=== PATIENT | male | born 1935 | race Caucasian/White ===

== ENCOUNTER 2017-09-26 20:37 | Inpatient (IN) | payer MEDICARE, BC ==
[2017-09-26] MEDS ORDERED: IBUPROFEN 600 MG TAB PO STA (21:13)
[2017-09-26] MEDS: SODIUM CHLORIDE 0.9% 500 ML IV SCH ×3 (21:26→23:15)
--- NOTE | 2017-09-26 21:36 | ED ---
General Adult HPI - General Chief complaint: Recheck/Abnormal Lab/Rx Stated complaint: Fever Time Seen by Provider: 09/26/17 20:56 Source: patient, family, RN notes reviewed, old records reviewed Mode of arrival: ambulatory Limitations: no limitations - History of Present Illness Initial comments: This patient is a pleasant 82-year-old male with a history of liver cancer, CABG , diabetes and hypertension presents emergency Department with 3 days of body aches, and 1 day of fever. Patient reports that he recently moved to this area from [place]. [facility] [place]. Patient states that he is going to start undergoing treatments for his liver cancer in [place] and has had an MRI and computed tomography scan at this time. He states that he is also had some urinary symptoms including burning with urination for the past few days. He relates a mild cough, but mainly complains of diffuse bodyaches over the upper arms back neck and legs. - Related Data Home Medications Medication Instructions Recorded Confirmed Aspirin 81 mg PO HS 09/26/17 09/26/17 Atorvastatin [Lipitor] 10 mg PO HS 09/26/17 09/26/17 Dorzolamide HCl [Trusopt 2%] 1 drop BOTH EYES BID 09/26/17 09/26/17 Gabapentin [Neurontin] 300 mg PO DAILY 09/26/17 09/26/17 Gabapentin [Neurontin] 600 mg PO HS 09/26/17 09/26/17 Latanoprost [Xalatan 0.005%] 1 drop BOTH EYES HS 09/26/17 09/26/17 Levothyroxine Sodium [Synthroid] 50 mcg PO DAILY 09/26/17 09/26/17 Pantoprazole Sodium [Protonix] 40 mg PO DAILY 09/26/17 09/26/17 Propranolol HCl 10 mg PO BID 09/26/17 09/26/17 Timolol 0.25% Ophth Soln [Timoptic 1 drop BOTH EYES HS 09/26/17 09/26/17 0.25% Ophth Soln] Allergies Allergy/AdvReac Type Severity Reaction Status Date / Time levofloxacin [From Levaquin] Allergy Unknown Verified 09/26/17 21:03 shellfish derived [Shellfish] Allergy Unknown Verified 09/26/17 21:06 Review of Systems ROS Statement: Those systems with pertinent positive or pertinent negative responses have been documented in the HPI. ROS Other: All systems not noted in ROS Statement are negative. Past Medical History Past Medical History: Liver Disease Additional Past Medical History / Comment(s): Liver cancer, enlarged spleen, History of Any Multi-Drug Resistant Organisms: None Reported Additional Past Surgical History / Comment(s): Open heart surgery, tumor on right foot removed, Past Psychological History: No Psychological Hx Reported Smoking Status: Never smoker Past Alcohol Use History: None Reported Past Drug Use History: None Reported General Exam - General Exam Comments Initial Comments: This patient is an 82-year-old male. Alert and oriented. He does appear somewhat weak and tired. Limitations: no limitations General appearance: alert, in no apparent distress Head exam: Present: atraumatic, normocephalic, normal inspection Eye exam: Present: normal appearance, PERRL, EOMI. Absent: scleral icterus, conjunctival injection, periorbital swelling ENT exam: Present: normal exam, mucous membranes moist Neck exam: Present: normal inspection. Absent: tenderness, meningismus, lymphadenopathy Respiratory exam: Present: normal lung sounds bilaterally, other (Scar noted over patient's open-heart surgery for CABG.). Absent: respiratory distress, wheezes, rales, rhonchi, stridor Cardiovascular Exam: Present: regular rate, normal rhythm, normal heart sounds. Absent: systolic murmur, diastolic murmur, rubs, gallop, clicks GI/Abdominal exam: Present: soft, normal bowel sounds. Absent: distended, tenderness, guarding, rebound, rigid Back exam: Present: normal inspection Neurological exam: Present: alert, oriented X3, CN II-XII intact Psychiatric exam: Present: normal affect, normal mood Skin exam: Present: warm, dry, intact, normal color. Absent: rash Course Vital Signs 09/26/17 09/26/17 20:39 22:44 Temperature 101.0 F H 99.1 F Pulse Rate 86 87 Respiratory 16 20 Rate Blood Pressure 138/63 122/60 O2 Sat by Pulse 99 100 Oximetry Medical Decision Making - Medical Decision Making This patient is a very pleasant 82-year-old male presents per his from a fear 101 she complained of diffuse body aches, a few days of burning with urination. Patient also history of liver cancer he starting to undergo treatment at the [facility] in [place]. He does not have a primary care physician here at this time. Patient states his main complaints are the body aches and backaches. Patient is given IV fluids and sepsis protocol utilized. Blood cultures obtained. Patient's labwork was reviewed and is relatively unremarkable except for a urinalysis. Multiple white blood cells are noted. We did do urine culture. Patient is ALLERGIC to Levaquin. I started him on Rocephin to cover for pyelonephritis with a fever and urinary tract infection. Discussed this case with Dr. Lira who accepts the admission. Patient agrees to admission at this time. - Lab Data Result diagrams: 09/26/17 21:37 09/26/17 21:37 Lab Results 09/26/17 09/26/17 09/26/17 Range/Units 21:37 21:37 21:37 WBC 10.5 (3.8-10.6) k/uL RBC 4.14 L (4.30-5.90) m/uL Hgb 12.0 L (13.0-17.5) gm/dL Hct 36.8 L (39.0-53.0) % MCV 88.9 (80.0-100.0) fL MCH 29.0 (25.0-35.0) pg MCHC 32.6 (31.0-37.0) g/dL RDW 14.5 (11.5-15.5) % Plt Count 61 L (150-450) k/uL Neutrophils % 79 % Lymphocytes % 12 % Monocytes % 7 % Eosinophils % 0 % Basophils % 0 % Neutrophils # 8.3 H (1.3-7.7) k/uL Lymphocytes # 1.2 (1.0-4.8) k/uL Monocytes # 0.8 (0-1.0) k/uL Eosinophils # 0.0 (0-0.7) k/uL Basophils # 0.0 (0-0.2) k/uL Polychromasia Present PT (9.0-12.0) sec INR (<1.2) APTT (22.0-30.0) sec Sodium 136 L (137-145) mmol/L Potassium 4.1 (3.5-5.1) mmol/L Chloride 103 (98-107) mmol/L Carbon Dioxide 23 (22-30) mmol/L Anion Gap 10 mmol/L BUN 17 (9-20) mg/dL Creatinine 1.00 (0.66-1.25) mg/dL Est GFR (CKD-EPI)AfAm 81 (>60 ml/min/1.73 sqM) Est GFR (CKD-EPI)NonAf 70 (>60 ml/min/1.73 sqM) Glucose 120 H (74-99) mg/dL Plasma Lactic Acid Rickey (0.7-2.0) mmol/L Calcium 9.1 (8.4-10.2) mg/dL Total Bilirubin 1.1 (0.2-1.3) mg/dL AST 44 (17-59) U/L ALT 36 (21-72) U/L Alkaline Phosphatase 160 H (38-126) U/L Total Creatine Kinase 99 (55-170) U/L CK-MB (CK-2) 0.9 (0.0-2.4) ng/mL CK-MB (CK-2) Rel Index 0.9 Troponin I <0.012 (0.000-0.034) ng/mL Total Protein 7.1 (6.3-8.2) g/dL Albumin 3.8 (3.5-5.0) g/dL Urine Color Urine Appearance (Clear) Urine pH (5.0-8.0) Ur Specific [place] (1.001-1.035) Urine Protein (Negative) Urine Glucose (UA) (Negative) Urine Ketones (Negative) Urine Blood (Negative) Urine Nitrite (Negative) Urine Bilirubin (Negative) Urine Urobilinogen (<2.0) mg/dL Ur Leukocyte Esterase (Negative) Urine RBC (0-5) /hpf Urine WBC (0-5) /hpf Urine Mucus (None) /hpf Influenza Type A RNA (Not Detectd) Influenza Type B (PCR) (Not Detectd) 09/26/17 09/26/17 09/26/17 Range/Units 21:37 21:37 21:37 WBC (3.8-10.6) k/uL RBC (4.30-5.90) m/uL Hgb (13.0-17.5) gm/dL Hct (39.0-53.0) % MCV (80.0-100.0) fL MCH (25.0-35.0) pg MCHC (31.0-37.0) g/dL RDW (11.5-15.5) % Plt Count (150-450) k/uL Neutrophils % % Lymphocytes % % Monocytes % % Eosinophils % % Basophils % % Neutrophils # (1.3-7.7) k/uL Lymphocytes # (1.0-4.8) k/uL Monocytes # (0-1.0) k/uL Eosinophils # (0-0.7) k/uL Basophils # (0-0.2) k/uL Polychromasia PT 11.0 (9.0-12.0) sec INR 1.1 (<1.2) APTT 25.0 (22.0-30.0) sec Sodium (137-145) mmol/L Potassium (3.5-5.1) mmol/L Chloride (98-107) mmol/L Carbon Dioxide (22-30) mmol/L Anion Gap mmol/L BUN (9-20) mg/dL Creatinine (0.66-1.25) mg/dL Est GFR (CKD-EPI)AfAm (>60 ml/min/1.73 sqM) Est GFR (CKD-EPI)NonAf (>60 ml/min/1.73 sqM) Glucose (74-99) mg/dL Plasma Lactic Acid Rickey 1.4 (0.7-2.0) mmol/L Calcium (8.4-10.2) mg/dL Total Bilirubin (0.2-1.3) mg/dL AST (17-59) U/L ALT (21-72) U/L Alkaline Phosphatase (38-126) U/L Total Creatine Kinase (55-170) U/L CK-MB (CK-2) (0.0-2.4) ng/mL CK-MB (CK-2) Rel Index Troponin I (0.000-0.034) ng/mL Total Protein (6.3-8.2) g/dL Albumin (3.5-5.0) g/dL Urine Color Urine Appearance (Clear) Urine pH (5.0-8.0) Ur Specific [place] (1.001-1.035) Urine Protein (Negative) Urine Glucose (UA) (Negative) Urine Ketones (Negative) Urine Blood (Negative) Urine Nitrite (Negative) Urine Bilirubin (Negative) Urine Urobilinogen (<2.0) mg/dL Ur Leukocyte Esterase (Negative) Urine RBC (0-5) /hpf Urine WBC (0-5) /hpf Urine Mucus (None) /hpf Influenza Type A RNA Not Detected (Not Detectd) Influenza Type B (PCR) Not Detected (Not Detectd) 09/26/17 Range/Units 21:37 WBC (3.8-10.6) k/uL RBC (4.30-5.90) m/uL Hgb (13.0-17.5) gm/dL Hct (39.0-53.0) % MCV (80.0-100.0) fL MCH (25.0-35.0) pg MCHC (31.0-37.0) g/dL RDW (11.5-15.5) % Plt Count (150-450) k/uL Neutrophils % % Lymphocytes % % Monocytes % % Eosinophils % % Basophils % % Neutrophils # (1.3-7.7) k/uL Lymphocytes # (1.0-4.8) k/uL Monocytes # (0-1.0) k/uL Eosinophils # (0-0.7) k/uL Basophils # (0-0.2) k/uL Polychromasia PT (9.0-12.0) sec INR (<1.2) APTT (22.0-30.0) sec Sodium (137-145) mmol/L Potassium (3.5-5.1) mmol/L Chloride (98-107) mmol/L Carbon Dioxide (22-30) mmol/L Anion Gap mmol/L BUN (9-20) mg/dL Creatinine (0.66-1.25) mg/dL Est GFR (CKD-EPI)AfAm (>60 ml/min/1.73 sqM) Est GFR (CKD-EPI)NonAf (>60 ml/min/1.73 sqM) Glucose (74-99) mg/dL Plasma Lactic Acid Rickey (0.7-2.0) mmol/L Calcium (8.4-10.2) mg/dL Total Bilirubin (0.2-1.3) mg/dL AST (17-59) U/L ALT (21-72) U/L Alkaline Phosphatase (38-126) U/L Total Creatine Kinase (55-170) U/L CK-MB (CK-2) (0.0-2.4) ng/mL CK-MB (CK-2) Rel Index Troponin I (0.000-0.034) ng/mL Total Protein (6.3-8.2) g/dL Albumin (3.5-5.0) g/dL Urine Color Yellow Urine Appearance Cloudy (Clear) Urine pH 5.5 (5.0-8.0) Ur Specific [place] 1.023 (1.001-1.035) Urine Protein 1+ H (Negative) Urine Glucose (UA) Negative (Negative) Urine Ketones Negative (Negative) Urine Blood Small H (Negative) Urine Nitrite Negative (Negative) Urine Bilirubin Negative (Negative) Urine Urobilinogen <2.0 (<2.0) mg/dL Ur Leukocyte Esterase Moderate H (Negative) Urine RBC 7 H (0-5) /hpf Urine WBC 63 H (0-5) /hpf Urine Mucus Many H (None) /hpf Influenza Type A RNA (Not Detectd) Influenza Type B (PCR) (Not Detectd) 09/26/17 21:36 EKG shows marked sinus rhythm, right bundle martinez block. Ventricular rate of 95 beats were minute. NC interval is 180 ms. QRS duration 120 ms. QT QTc is 400/502 ms. No evidence of ST elevation or T-wave inversion. No evidence of atrial or ventricular arrhythmias. - Radiology Data Radiology results: report reviewed His x-rays negative for any acute cardiopulmonary disease. Disposition Clinical Impression: Pyelonephritis Disposition: ADMITTED IP TO THIS HOSP Condition: Stable Referrals: Nonstaff,Physician [Primary Care Provider] - 1-2 days Time of Disposition: 23:11
[2017-09-26 21:53] LABS: Basophils % (A) 0 %; Eosinophils % (A) 0 %; HCT 36.8 % (39.0-53.0); Lymphocytes # (A) 1.2 k/uL (1.0-4.8); Lymphocytes % (A) 12 %; MCHC 32.6 g/dL (31.0-37.0); MCV 88.9 fL (80.0-100.0); Mean Platelet Volume 9.5; Monocytes # (A) 0.8 k/uL (0-1.0); Monocytes % (A) 7 %; Neutrophils # (A) 8.3 k/uL (1.3-7.7); Neutrophils % (A) 79 %; RBC 4.14 m/uL (4.30-5.90); RDW 14.5 % (11.5-15.5); WBC 10.5 k/uL (3.8-10.6)
[2017-09-26 22:00] LABS: Appearance,Urine Cloudy (Clear); Bilirubin,Urine Negative (Negative); Blood,Urine Small (Negative); Color,Urine Yellow; Glucose,Urine (UA) Negative (Negative); Ketones,Urine Negative (Negative); Leukocyte Esterase,Urine Moderate (Negative); Mucus,Urine Many /hpf; Nitrite,Urine Negative (Negative); PH, Urine 5.5 (5.0-8.0); Protein,Urine 1+ (Negative); RBC,Urine 7 /hpf (0-5); Specific Gravity,Urine 1.023 (1.001-1.035); Urobilinogen,Urine <2.0 mg/dL (<2.0); WBC,Urine 63 /hpf (0-5)
[2017-09-26 22:01] LABS: INR 1.1 (<1.2)
[2017-09-26 22:02] LABS: Polychromasia Present
[2017-09-26 22:03] LABS: Albumin 3.8 g/dL (3.5-5.0); Calcium 9.1 mg/dL (8.4-10.2); Platelet Count 61 k/uL (150-450); Potassium 4.1 mmol/L (3.5-5.1); Total Bilirubin 1.1 mg/dL (0.2-1.3); Total Protein 7.1 g/dL (6.3-8.2)
--- NOTE | 2017-09-26 22:11 | XR ---
EXAMINATION TYPE: XR chest 2V DATE OF EXAM: 09/26/2017 COMPARISON: NONE HISTORY: Fever TECHNIQUE: Frontal and lateral views of the chest are obtained. FINDINGS: There is no heart failure nor confluent pneumonic infiltrate. There are sternal wires. Hea rt size is normal. There is no evidence of pleural effusion. Bony thorax appears intact. IMPRESSION: No active cardiopulmonary disease.
[2017-09-26 22:12] LABS: Creatine Kinase 99 U/L (55-170)
[2017-09-26 22:25] LABS: Creatine Kinase MB 0.9 ng/mL (0.0-2.4); Troponin I <0.012 ng/mL (0.000-0.034)
[2017-09-26] MEDS ORDERED: cefTRIAXone IN SWFI 1,000 MG/10 ML SYRINGE IVP STA (22:55)
[2017-09-26] MEDS ORDERED: IBUPROFEN 400 MG TAB PO PRN (23:12)
[2017-09-26] MEDS ORDERED: NALOXONE 0.4 MG/ML 1 ML VIAL IV PRN (23:12)
[2017-09-26] MEDS ORDERED: Acetaminophen-Codeine 300-30mg TAB PO PRN (23:12)
[2017-09-26] MEDS ORDERED: MORPHINE SULFATE 4 MG/ML SYRINGE IV PRN (23:12)
[2017-09-26] MEDS ORDERED: TEMAZEPAM 15 MG CAP PO PRN (23:12)
[2017-09-26] MEDS ORDERED: ONDANSETRON 4 MG/2 ML VIAL IVP PRN (23:12)
[2017-09-26] MEDS ORDERED: ALPRAZolam 0.25 MG TAB PO PRN (23:12)
[2017-09-26] MEDS: SODIUM CHLORIDE 0.9% 1,000 ML IV SCH (23:40)
[2017-09-27] MEDS ORDERED: CALCIUM CARBONATE 500 MG CHEWABLE PO PRN (00:04)
[2017-09-27] MEDS ORDERED: MELATONIN 3 MG TABLET PO PRN (00:04)
[2017-09-27] MEDS ORDERED: HYDROcodone/APAP 5-325MG 1 EACH TAB PO PRN (00:04)
[2017-09-27] MEDS ORDERED: NALOXONE 0.4 MG/ML 1 ML VIAL IV PRN (00:04)
[2017-09-27] MEDS ORDERED: ACETAMINOPHEN TAB 325 MG TAB PO PRN (00:04)
[2017-09-27] MEDS ORDERED: DOCUSATE 100 MG CAP PO PRN (00:04)
--- NOTE | 2017-09-27 00:10 | P.HPIM ---
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 In the emergency department he underwent an extensive exam. On arrival he was found to be febrile at 101. His blood work showed slight anemia with hemoglobin of 12 and platelets of 61. Urinalysis demonstrated probable urinary tract infection. EKG was within normal limits. He was diagnosed with UTI given a dose of Rocephin, and started on IV fluids. Arrangements were made for admission. Patient seen and examined at bedside. He states his began 3-4 days ago but worsened today. He was having all over her body and joint aches. He was feeling overall weak and fatigued. He is having some difficulty standing from a chair. He has been having fevers for the last 2 days with a T-max of 101.4. He is also noted increased headache compared to his usual. He did notice some dysuria. Initially he thought it was a recurrence of his prior reaction to Levaquin but when the fever spiked he felt that this was something different. He has liver cancer and will be getting radiation to the liver on October 22. His last chemo was November 2016. He does not take any aspirin secondary to history of esophageal varices. Review of Systems General: + Fever/chills, no rigors, no weight loss/weight gain, + generalized fatigue/weakness Eyes: no noticeable visual changes, no loss of vision ENT: no rhinorrhea, no congestion, no sore throat Cardiovascular: no chest pain, no palpitations, no preyncope/syncope, no edema Pulmonary: no shortness of breath, no wheezing, no cough Abdominal: no abdominal pain, no constipation, no diarrhea, no vomiting, no nausea Genitourinary: + Dysuria, no urinary frequency, no unusual discharge/odor Neuro: no unusual paresthesias, no unusual paresis/paralysis, no headache Dermatologic: no unusual rashes, no unusual lesions, no unusual changes in nails Hematologic: no hemoptysis, no hematuria, no melena/hematochezia Psychiatric: no changes in mood or behaviors, no changes in sleep pattern Past Medical History Past Medical History: Liver Disease Additional Past Medical History / Comment(s): Liver cancer status post chemo, enlarged spleen, hypothyroidism, coronary artery disease, prior neck injury resulting in neuropathy, esophageal varices, glaucoma History of Any Multi-Drug Resistant Organisms: None Reported Additional Past Surgical History / Comment(s): Open heart surgery, tumor on right foot removed Past Psychological History: No Psychological Hx Reported Smoking Status: Never smoker Past Alcohol Use History: None Reported Past Drug Use History: None Reported Additional History: Lives with his , no assistive devices - Past Family History Mother Additional Family Medical History / Comment(s): Esophageal varices, hepatitis B Father Additional Family Medical History / Comment(s): Congestive heart failure Medications and Allergies Home Medications Medication Instructions Recorded Confirmed Type Aspirin 81 mg PO HS 09/26/17 09/26/17 History Atorvastatin [Lipitor] 10 mg PO HS 09/26/17 09/26/17 History Dorzolamide HCl [Trusopt 2%] 1 drop BOTH EYES BID 09/26/17 09/26/17 History Gabapentin [Neurontin] 300 mg PO DAILY 09/26/17 09/26/17 History Gabapentin [Neurontin] 600 mg PO HS 09/26/17 09/26/17 History Latanoprost [Xalatan 0.005%] 1 drop BOTH EYES HS 09/26/17 09/26/17 History Levothyroxine Sodium [Synthroid] 50 mcg PO DAILY 09/26/17 09/26/17 History Pantoprazole Sodium [Protonix] 40 mg PO DAILY 09/26/17 09/26/17 History Propranolol HCl 10 mg PO BID 09/26/17 09/26/17 History Timolol 0.25% Ophth Soln [Timoptic 1 drop BOTH EYES HS 09/26/17 09/26/17 History 0.25% Ophth Soln] Allergies Allergy/AdvReac Type Severity Reaction Status Date / Time levofloxacin [From Levaquin] Allergy Unknown Verified 09/26/17 21:03 shellfish derived [Shellfish] Allergy Unknown Verified 09/26/17 21:06 Physical Exam Osteopathic Statement: *. No significant issues noted on an osteopathic structural exam other than those noted in the History and Physical/Consult. Vitals: Vital Signs Temp Pulse Resp BP Pulse Ox 09/26/17 22:44 99.1 F 87 20 122/60 100 09/26/17 20:39 101.0 F H 86 16 138/63 99 Intake and Output 09/26/17 09/26/17 09/27/17 14:59 22:59 06:59 Other: Weight 86.183 kg General: Ill-appearing, no distress, appears at stated age, normal weight Derm: no unusual rashes/lesions no unusual ecchymoses, warm, dry Head: atraumatic, normocephalic, symmetric Eyes: EOMI, no lid lag, anicteric sclera, pupils equal round reactive to light ENT: Nose and ears atraumatic, no thrush, no pharyngeal erythema Neck: No thyromegaly, no cervical lymphadenopathy, trachea midline, supple Mouth: Hemangioma left lower lip, mucus membranes moist Cardiovascular: S1S2 reg, systolic ejection murmur, positive posterior tibial pulse bilateral, no edema, capillary refill less than 2 seconds Lungs: CTA bilateral, no rhonchi, no rales , no accessory muscle use Abdominal: soft, nontender to palpation, no guarding, no appreciable organomegaly, normal bowel sounds, no CVA tenderness Ext: no gross muscle atrophy, muscle strength 5 out of 5 in all 4 extremities grossly, no contractures, Neuro: CN II-XI grossly intact, light touch intact all 4 extremities Psych: Alert, oriented, appropriate affect Results CBC & Chem 7: 09/26/17 21:37 09/26/17 21:37 Labs: Abnormal Lab Results - Last 24 Hours (Table) 09/26/17 09/26/17 09/26/17 Range/Units 21:37 21:37 21:37 RBC 4.14 L (4.30-5.90) m/uL Hgb 12.0 L (13.0-17.5) gm/dL Hct 36.8 L (39.0-53.0) % Plt Count 61 L (150-450) k/uL Neutrophils # 8.3 H (1.3-7.7) k/uL Sodium 136 L (137-145) mmol/L Glucose 120 H (74-99) mg/dL Alkaline Phosphatase 160 H (38-126) U/L Urine Protein 1+ H (Negative) Urine Blood Small H (Negative) Ur Leukocyte Esterase Moderate H (Negative) Urine RBC 7 H (0-5) /hpf Urine WBC 63 H (0-5) /hpf Urine Mucus Many H (None) /hpf Comments: EKG revealed normal sinus rhythm at a rate of 95 with a right bundle branch block with strain, prolonged QT at 502 Thrombosis Risk Factor Assmnt - DVT/VTE Prophylaxis DVT/VTE Prophylaxis: Mechanical Prophylaxis ordered, Contraindicated - See note (thrombocytopenia) - Choose All That Apply Each Risk Factor Represents 2 Points: Malignancy Each Risk Factor Represents 3 Points: Age 75 years or older Thrombosis Risk Factor Assessment Total Risk Factor Score: 5 Thrombosis Risk Factor Assessment Level: High Risk Assessment and Plan Assessment: UTI -Rocephin -IV fluids -Await blood and urine culture Liver cancer with history of esophageal varices -Continue with PPI -Continue with outpatient follow-up -Plan is for radiation therapy on October 22. He is currently following at [facility]. Hypothyroidism -Synthroid - check TSH Clinical dehydration -IV fluids Anemia and thrombocytopenia -Suspect chronic with enlarged spleen and liver cancer -Follow CBC -Avoid pharmacologic DVT prophylaxis at this time with history of esophageal varices and platelets of 63 -Continue outpatient follow-up Chronic: Coronary artery disease Glaucoma Neuropathy Surrogate decision-maker: -Megha Quintana CODE STATUS:full DVT prophylaxis: SCDs Discussed with: Patient, family, ED PA Anticipated discharge: 24-[address]: home A total of 55 minutes was spent on the care of this complex patient more than 50 % of the time was spent in counseling and care coordination.
[2017-09-27 00:37] VITALS: BMI 28.8
[2017-09-27] MEDS: SODIUM CHLORIDE 0.9% 1,000 ML IV SCH (00:41)
[2017-09-27] MEDS: GABAPENTIN 300 MG CAP PO SCH ×3 (00:42→22:22)
[2017-09-27] MEDS: LEVOTHYROXINE 50 MCG TAB PO SCH (06:03)
[2017-09-27] MEDS: DORZOLAMIDE HCL 2% DROPS 10 ML BTL BOTH EYES SCH ×2 (07:54→22:23)
[2017-09-27] MEDS: PROPRANOLOL 10 MG TAB PO SCH ×2 (07:55→22:24)
[2017-09-27] MEDS: PANTOPRAZOLE 40 MG TABLET PO SCH (07:55)
[2017-09-27] MEDS ORDERED: PANTOPRAZOLE 40 MG/10 ML VIAL IV SCH (09:00)
[2017-09-27 09:17] LABS: HCT 36.1 % (39.0-53.0); HGB 11.4 gm/dL (13.0-17.5); MCH 28.9 pg (25.0-35.0); MCHC 31.7 g/dL (31.0-37.0); MCV 91.3 fL (80.0-100.0); Mean Platelet Volume 9.3; RBC 3.95 m/uL (4.30-5.90); RDW 14.5 % (11.5-15.5); WBC 6.8 k/uL (3.8-10.6)
[2017-09-27 09:21] LABS: Platelet Count 59 k/uL (150-450)
[2017-09-27 09:27] LABS: Anion Gap 8 mmol/L; Blood Urea Nitrogen 14 mg/dL (9-20); Calcium 8.4 mg/dL (8.4-10.2); Carbon Dioxide 26 mmol/L (22-30); Chloride 107 mmol/L (98-107); Glucose 161 mg/dL (74-99); Potassium 3.8 mmol/L (3.5-5.1); Sodium 141 mmol/L (137-145)
[2017-09-27 10:25] LABS: T4, Free (Free Thyroxine) 1.19 ng/dL (0.78-2.19)
--- NOTE | 2017-09-27 11:35 | CDI ---
Last Revision, June 2017 Documentation Clarification Form Date: September 27, 2017 From: Dyan Marlow RN Admit Date: 09/26/2017 11:15:00 PM Patient Name: Martin Quintana Visit Number: [id number] ATTENTION: The Clinical Documentation Specialists (CDI) and [facility] Coding Staff appreciate your assistance in clarifying documentation. Please respond to the clarification below the line at the bottom and electronically sign. The CDI & [facility] Coding staff will review the response and follow-up if needed. Please note: Queries are made part of the Legal Health Record. If you have any questions, please contact the author of this message via ITS. Dr. Charis Weldon, Anemia is charted in the H&P, it lacks specificity to accurately reflect your patients severity of condition and clarification is needed. History/Risk Factors: liver cancer, CAD, neuropathy from neck injury, came in with weakness and fever Clinical indicators: Hemoglobin: 12.0 -11.4 Hematocrit: 36.8-36.1 Treatment: monitor labs In order to capture the severity of condition, please clarify the type of anemia and etiology if known: Iron deficiency anemia Hemolytic anemia Anemia due to malignancy Nutritional anemia Unable to determine Other, please specify Please continue to document in your progress notes ,discharge summary or under the line below,in order to capture severity of illness and risk of mortality. Include clinical findings that support your diagnosis. Clinically unable to determine MTDD
--- NOTE | 2017-09-27 11:43 | P.PN ---
Subjective Progress Note Date: 09/27/17 Principal diagnosis: Body aches Patient was feeling better today, no recurrent body aches or fevers. He was able to ambulate around the room today. Objective - Vital Signs Vital signs: Vital Signs Temp 97.3 F L 09/27/17 07:00 Pulse 77 09/27/17 07:00 Resp 18 09/27/17 07:00 BP 104/59 09/27/17 07:00 Pulse Ox 96 09/27/17 07:00 Intake & Output 09/26/17 09/27/17 09/27/17 18:59 06:59 18:59 Intake Total 600 120 Balance 600 120 Weight 90 kg Intake: Oral 600 120 Other: # Voids 2 - Exam General: comfortable, no distress. Derm: no unusual rashes/lesions, no unusual ecchymoses, warm, dry Head: atraumatic, normocephalic, symmetric Eyes: EOMI, no lid lag, anicteric sclera, pupils equal round reactive to light ENT: Nose and ears atraumatic, no thrush, no pharyngeal erythema Neck: No thyromegaly, no cervical lymphadenopathy, trachea midline, supple Mouth: Hemangioma left lower lip, mucus membranes moist Cardiovascular: S1S2 reg, systolic ejection murmur, no edema, Lungs: CTA bilateral, no rhonchi, no rales , no accessory muscle use Abdominal: soft, nontender to palpation, no guarding, no appreciable organomegaly, normal bowel sounds, no CVA tenderness Ext: no gross muscle atrophy, muscle strength 5 out of 5 in all 4 extremities grossly, no contractures, Neuro: CN II-XI grossly intact, light touch intact all 4 extremities Psych: Alert, oriented, appropriate affect - Labs CBC & Chem 7: 09/27/17 08:47 09/27/17 08:47 Labs: Abnormal Lab Results - Last 24 Hours (Table) 09/26/17 09/26/17 09/26/17 Range/Units 21:37 21:37 21:37 RBC 4.14 L (4.30-5.90) m/uL Hgb 12.0 L (13.0-17.5) gm/dL Hct 36.8 L (39.0-53.0) % Plt Count 61 L (150-450) k/uL Neutrophils # 8.3 H (1.3-7.7) k/uL Sodium 136 L (137-145) mmol/L Glucose 120 H (74-99) mg/dL Alkaline Phosphatase 160 H (38-126) U/L TSH (0.465-4.680) mIU/L Urine Protein 1+ H (Negative) Urine Blood Small H (Negative) Ur Leukocyte Esterase Moderate H (Negative) Urine RBC 7 H (0-5) /hpf Urine WBC 63 H (0-5) /hpf Urine Mucus Many H (None) /hpf 09/27/17 09/27/17 Range/Units 08:47 08:47 RBC 3.95 L (4.30-5.90) m/uL Hgb 11.4 L (13.0-17.5) gm/dL Hct 36.1 L (39.0-53.0) % Plt Count 59 L (150-450) k/uL Neutrophils # (1.3-7.7) k/uL Sodium (137-145) mmol/L Glucose 161 H (74-99) mg/dL Alkaline Phosphatase (38-126) U/L TSH 5.180 H (0.465-4.680) mIU/L Urine Protein (Negative) Urine Blood (Negative) Ur Leukocyte Esterase (Negative) Urine RBC (0-5) /hpf Urine WBC (0-5) /hpf Urine Mucus (None) /hpf Microbiology - Last 24 Hours (Table) 09/26/17 21:37 Urine Culture - Preliminary Urine,Voided Assessment and Plan Plan: Acute UTI -Continue rocephin -IV fluids -Await blood and urine culture Liver cancer with history of esophageal varices -Continue with PPI -Continue with outpatient follow-up -Plan is for radiation therapy on October 22. He is currently following at [facility]. Hypothyroidism -Synthroid Clinical dehydration -IV fluids Anemia and thrombocytopenia -Chronic with enlarged spleen and liver cancer -Follow CBC -Avoid pharmacologic DVT prophylaxis at this time with history of esophageal varices and platelets of 63 -Continue outpatient follow-up Chronic: Coronary artery disease Glaucoma Neuropathy
[2017-09-27] MEDS ORDERED: LATANOPROST 0.005% OPHTH DROPS 2.5 ML BTL BOTH EYES SCH (21:00)
[2017-09-27] MEDS ORDERED: ATORVASTATIN 10 MG TAB PO SCH (21:00)
[2017-09-27] MEDS ORDERED: TIMOLOL 0.25% OPHTH DROPS 5 ML BTL BOTH EYES SCH (21:00)
[2017-09-27] MEDS ORDERED: ASPIRIN 81 MG PO SCH (21:00)
[2017-09-28] MEDS: PROPRANOLOL 10 MG TAB PO SCH (06:29)
[2017-09-28] MEDS: LEVOTHYROXINE 50 MCG TAB PO SCH (06:29)
[2017-09-28 07:43] VITALS: BP 93/50; PULSE 69; RESP 16; TEMP 99.2
[2017-09-28] MEDS: DORZOLAMIDE HCL 2% DROPS 10 ML BTL BOTH EYES SCH (08:56)
[2017-09-28] MEDS: PANTOPRAZOLE 40 MG TABLET PO SCH (08:57)
[2017-09-28] MEDS: GABAPENTIN 300 MG CAP PO SCH (08:57)
[2017-09-28] MEDS ORDERED: cefTRIAXone IN SWFI 1,000 MG/10 ML SYRINGE IVP STA (10:04)
--- NOTE | 2017-09-28 16:11 | P.DS ---
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 He stated this began 3-4 days ago. He was having aches all over hir body and joint aches. He was feeling overall weak and fatigued. He was also having some difficulty standing from a chair. In addition he was having fevers for the last 2 days with a T-max of 101.4. He also noted increased headaches compared to his usual. He did notice some dysuria as well. Initially he thought it was a recurrence of his prior reaction to Levaquin but when the fever spiked he felt that this was something different. In the emergency department he underwent an extensive exam. On arrival he was found to be febrile at 101. His blood work showed slight anemia with hemoglobin of 12 and platelets of 61. Urinalysis demonstrated probable urinary tract infection. EKG was within normal limits. He was diagnosed with UTI given a dose of Rocephin, and started on IV fluids. Patient was admitted for further evaluation and management. He has liver cancer and will be getting radiation to the liver on October 22. His last chemo was November 2016, he follows up at the [facility] in [place] for that. He was treated with antibiotics and IV fluids. Preliminary urine cultures grew staph coag negative. Final ID and sensitivity are still pending. His symptoms resolved and today was discharged in a stable condition. He was prescribed some Keflex upon discharge. Patient was not willing to wait for that to come back and he adamantly wanted to go home. Patient Condition at Discharge: Stable Plan - Discharge Summary New Discharge Prescriptions: New Cephalexin [Keflex] 500 mg PO Q12HR #26 cap Continue Timolol 0.25% Ophth Soln [Timoptic 0.25% Ophth Soln] 1 drop BOTH EYES HS Latanoprost [Xalatan 0.005%] 1 drop BOTH EYES HS Dorzolamide HCl [Trusopt 2%] 1 drop BOTH EYES BID Pantoprazole Sodium [Protonix] 40 mg PO DAILY Levothyroxine Sodium [Synthroid] 50 mcg PO DAILY Gabapentin [Neurontin] 300 mg PO DAILY Gabapentin [Neurontin] 600 mg PO HS Propranolol HCl 10 mg PO BID Atorvastatin [Lipitor] 10 mg PO HS Aspirin 81 mg PO HS Discharge Medication List Aspirin 81 mg PO HS 09/26/17 [History] Atorvastatin [Lipitor] 10 mg PO HS 09/26/17 [History] Dorzolamide HCl [Trusopt 2%] 1 drop BOTH EYES BID 09/26/17 [History] Gabapentin [Neurontin] 300 mg PO DAILY 09/26/17 [History] Gabapentin [Neurontin] 600 mg PO HS 09/26/17 [History] Latanoprost [Xalatan 0.005%] 1 drop BOTH EYES HS 09/26/17 [History] Levothyroxine Sodium [Synthroid] 50 mcg PO DAILY 09/26/17 [History] Pantoprazole Sodium [Protonix] 40 mg PO DAILY 09/26/17 [History] Propranolol HCl 10 mg PO BID 09/26/17 [History] Timolol 0.25% Ophth Soln [Timoptic 0.25% Ophth Soln] 1 drop BOTH EYES HS [History] Cephalexin [Keflex] 500 mg PO Q12HR #26 cap 09/28/17 [Rx] Follow up Appointment(s)/Referral(s): Nonstaff,Physician [Primary Care Provider] - 1-2 days Patient Instructions/Handouts: Urinary Tract Infection in Men (DC) Discharge Disposition: HOME SELF-CARE
== END 2017-09-28 11:00 | disposition home or self-care (01) | DRG 690 ==
LOC: EC 20:37 → 4MS4W 23:15
PROVIDERS: ADMIT Internal Medicine; ATTEND Internal Medicine
DX: N39.0 Urinary tract infection, site not specified (principal); D69.6 Thrombocytopenia, unspecified; G62.9 Polyneuropathy, unspecified; C22.9 Malignant neoplasm of liver, not specified as primary or secondary; E86.0 Dehydration; R16.1 Splenomegaly, not elsewhere classified; D64.9 Anemia, unspecified; E03.9 Hypothyroidism, unspecified; E11.9 Type 2 diabetes mellitus without complications; T14.90XS Injury, unspecified, sequela; H40.9 Unspecified glaucoma; I10 Essential (primary) hypertension; I25.10 Atherosclerotic heart disease of native coronary artery without angina pectoris; Z79.82 Long term (current) use of aspirin; Z82.49 Family history of ischemic heart disease and other diseases of the circulatory system; Z88.1 Allergy status to other antibiotic agents; Z92.21 Personal history of antineoplastic chemotherapy; Z95.1 Presence of aortocoronary bypass graft; Z91.013 Allergy to seafood
CPT/HCPCS: 36415; 71046; 80048; 80053; 81001; 82550; 82553; 83605; 84439; 84443; 84484; 85025; 85027; 85610; 85730; 87040; 87077; 87086; 87186; 87502; 93005; 96374; 99285

== ENCOUNTER 2019-10-18 17:23 | Inpatient (IN) | payer OTHER, MEDICARE, BC ==
--- NOTE | 2019-10-18 17:45 | ED ---
General Adult HPI - General Chief complaint: Altered Mental Status Stated complaint: AMS Time Seen by Provider: 10/18/19 17:24 Source: patient, EMS Mode of arrival: EMS Limitations: altered mental status - History of Present Illness Initial comments: Dictation was produced using N-Sided dictation software. please excuse any grammatical, word or spelling errors. This patient was cared for during a federal and state declared state of emergency secondary to Covid 19 Chief Complaint: 84-year-old male with past medical history of liver cancer on oral chemotherapy presents with generalized weakness and altered mental status. History of Present Illness: Patient is 84-year-old male is brought in by EMS. Patient is accompanied by . According to patient has been altered for the last 4-5 days. She noticed that initially his symptoms began with weakness. He sees a doctor out of [facility] who prescribes patient's oral chemotherapy pills. Discussion was had with that physician and be rechecked did come to the emergency department. was told that there is concern of possible infection causing patient's symptoms. Patient is a poor historian at this time. Patient unable to provide detailed HPI. Complains of some mild back pain however he does have chronic back pain according to . noted that patient was significantly weaker today than when his symptoms began 4-5 days ago prompting ER visitation. The ROS documented in this emergency department record has been reviewed and confirmed by me. Those systems with pertinent positive or negative responses have been documented in the HPI. All other systems are other negative and/or noncontributory. PHYSICAL EXAM: General Impression: Alert and oriented x3, mildly lethargic HEENT: Normocephalic atraumatic, extra-ocular movements intact, pupils equal and reactive to light bilaterally, mucous membranes moist. Cardiovascular: Heart regular rate and rhythm, S1&S2 audible, no murmurs, rubs or gallops Chest: Lungs clear to auscultation bilaterally, no rhonchi, no wheeze, no rales Abdomen: Bowel sounds present, abdomen soft, non-tender, non-distended, no organomegaly Musculoskeletal: Pulses present and equal in all extremities, no peripheral edema Motor: no focal deficits noted Neurological: CN II-XII grossly intact, no drift to the right lower extremity, follows commands, sensation to painful stimuli of all extremities, slurred s peech Skin: Intact with no visualized rashes Psych: Normal affect and mood ED course: 84-year-old male presents to the emergency department for altered mental status, generalized weakness. All signs upon arrival shows findings within acceptable limits. Patient's symptoms have been ongoing for 4-5 days according to . Does have history of liver cancer. Patient does have focal neurologic deficits. According to patient's baseline he is typically able to ambulate and have meaningful conversation. Laboratory evaluation obtained. No leukocytosis. Hemoglobin 11.0. Mild thrombocytopenia 56. Coag panel is unremarkable. Metabolic panel shows no significant abnormalities. Lactic acidosis of 2.8. Mild hyper ammonia of 31. Urinalysis is negative. Serum alcohol is negative. Computed tomography scan of the brain shows no acute processes. Chest x-rays concerning for right lower lobe pneumonia. Patient doesn't have any overwhelming respiratory symptoms however considering his age and comorbidities concerned that patient suffering from community acquired pneumonia with early sepsis. Patient given 2500 mL of fluid which equates to 30 mL per KG based on ideal body weight. Results were discussed with patient and . They are amenable to disposition plan. Patient evaluated bedside with improvement of symptoms. Discussed patient case with Dr. Slaughter who is pci security consultant for [facility] hospitalist group. She is willing to accept patients care. EKG interpretation: Ventricular rate 56, sinus record, NE interval 202, QRS 128, QTc 457. No NE prolongation, no QTC prolongation, no ST or T-wave changes noted. EKG compared to 09/26/2009 showing no changes. Overall, this EKG is unremarkable - Related Data Home Medications Medication Instructions Recorded Confirmed Aspirin 81 mg PO DAILY 09/26/17 10/18/19 Levothyroxine Sodium [Synthroid] 50 mcg PO DAILY 09/26/17 10/18/19 Pantoprazole Sodium [Protonix] 40 mg PO DAILY 09/26/17 10/18/19 Propranolol HCl 10 mg PO DAILY 09/26/17 10/18/19 Atorvastatin [Lipitor] 10 mg PO Q48H 10/18/19 10/18/19 Furosemide [Lasix] 40 mg PO DAILY 10/18/19 10/18/19 Potassium Gluconate 99 mg PO DAILY 10/18/19 10/18/19 Spironolactone [Aldactone] 25 mg PO DIRECTED 10/18/19 10/18/19 Vit C/E/Zn/Coppr/Lutein/Zeaxan 2 cap PO DAILY 10/18/19 10/18/19 [Preservision Areds 2 Softgel] Allergies Allergy/AdvReac Type Severity Reaction Status Date / Time levofloxacin [From Levaquin] Allergy Unknown Verified 10/18/19 18:29 shellfish derived [Shellfish] Allergy Unknown Verified 10/18/19 18:29 Review of Systems ROS Statement: Those systems with pertinent positive or pertinent negative responses have been documented in the HPI. ROS Other: All systems not noted in ROS Statement are negative. Past Medical History Past Medical History: Liver Disease Additional Past Medical History / Comment(s): Liver cancer status post chemo, enlarged spleen, hypothyroidism, coronary artery disease, prior neck injury res ulting in neuropathy, esophageal varices, glaucoma History of Any Multi-Drug Resistant Organisms: None Reported Additional Past Surgical History / Comment(s): Open heart surgery, tumor on right foot removed Past Psychological History: No Psychological Hx Reported Smoking Status: Never smoker Past Alcohol Use History: None Reported Past Drug Use History: None Reported - Past Family History Mother Additional Family Medical History / Comment(s): Esophageal varices, hepatitis B Father Additional Family Medical History / Comment(s): Congestive heart failure General Exam Limitations: altered mental status Course Vital Signs 10/18/19 10/18/19 17:25 19:15 Temperature 97.6 F Pulse Rate 55 L 61 Respiratory 18 18 Rate Blood Pressure 162/82 126/66 O2 Sat by Pulse 100 98 Oximetry Medical Decision Making - Lab Data Result diagrams: 10/18/19 17:31 10/18/19 18:35 Lab Results 10/18/19 10/18/19 10/18/19 Range/Units 17:31 17:31 17:31 WBC 5.5 (3.8-10.6) k/uL RBC 4.91 (4.30-5.90) m/uL Hgb 11.0 L (13.0-17.5) gm/dL Hct 37.5 L (39.0-53.0) % MCV 76.5 L (80.0-100.0) fL MCH 22.4 L (25.0-35.0) pg MCHC 29.3 L (31.0-37.0) g/dL RDW 18.3 H (11.5-15.5) % Plt Count 56 L (150-450) k/uL Neutrophils % 69 % Lymphocytes % 20 % Monocytes % 8 % Eosinophils % 2 % Basophils % 1 % Neutrophils # 3.8 (1.3-7.7) k/uL Lymphocytes # 1.1 (1.0-4.8) k/uL Monocytes # 0.4 (0-1.0) k/uL Eosinophils # 0.1 (0-0.7) k/uL Basophils # 0.0 (0-0.2) k/uL Hypochromasia Marked Anisocytosis Slight Microcytosis Slight PT 13.3 H (9.0-12.0) sec INR 1.3 H (<1.2) APTT 27.2 (22.0-30.0) sec Sodium (137-145) mmol/L Potassium (3.5-5.1) mmol/L Chloride (98-107) mmol/L Carbon Dioxide (22-30) mmol/L Anion Gap mmol/L BUN (9-20) mg/dL Creatinine (0.66-1.25) mg/dL Est GFR (CKD-EPI)AfAm (>60 ml/min/1.73 sqM) Est GFR (CKD-EPI)NonAf (>60 ml/min/1.73 sqM) Glucose (74-99) mg/dL POC Glucose (mg/dL) (75-99) mg/dL POC Glu Animal Laboratory Helper ID Plasma Lactic Acid Rickey 2.8 H* (0.7-2.0) mmol/L Calcium (8.4-10.2) mg/dL Magnesium (1.6-2.3) mg/dL Total Bilirubin (0.2-1.3) mg/dL AST (17-59) U/L ALT (4-49) U/L Alkaline Phosphatase (38-126) U/L Ammonia 31 H (<30) umol/L Troponin I (0.000-0.034) ng/mL Total Protein (6.3-8.2) g/dL Albumin (3.5-5.0) g/dL Urine Color Urine Appearance (Clear) Urine pH (5.0-8.0) Ur Specific Fluker (1.001-1.035) Urine Protein (Negative) Urine Glucose (UA) (Negative) Urine Ketones (Negative) Urine Blood (Negative) Urine Nitrite (Negative) Urine Bilirubin (Negative) Urine Urobilinogen (<2.0) mg/dL Ur Leukocyte Esterase (Negative) Serum Alcohol mg/dL 10/18/19 10/18/19 10/18/19 Range/Units 17:31 17:48 18:35 WBC (3.8-10.6) k/uL RBC (4.30-5.90) m/uL Hgb (13.0-17.5) gm/dL Hct (39.0-53.0) % MCV (80.0-100.0) fL MCH (25.0-35.0) pg MCHC (31.0-37.0) g/dL RDW (11.5-15.5) % Plt Count (150-450) k/uL Neutrophils % % Lymphocytes % % Monocytes % % Eosinophils % % Basophils % % Neutrophils # (1.3-7.7) k/uL Lymphocytes # (1.0-4.8) k/uL Monocytes # (0-1.0) k/uL Eosinophils # (0-0.7) k/uL Basophils # (0-0.2) k/uL Hypochromasia Anisocytosis Microcytosis PT (9.0-12.0) sec INR (<1.2) APTT (22.0-30.0) sec Sodium 134 L (137-145) mmol/L Potassium 3.7 (3.5-5.1) mmol/L Chloride 107 (98-107) mmol/L Carbon Dioxide 21 L (22-30) mmol/L Anion Gap 6 mmol/L BUN 15 (9-20) mg/dL Creatinine 0.84 (0.66-1.25) mg/dL Est GFR (CKD-EPI)AfAm >90 (>60 ml/min/1.73 sqM) Est GFR (CKD-EPI)NonAf 81 (>60 ml/min/1.73 sqM) Glucose 83 (74-99) mg/dL POC Glucose (mg/dL) 106 H (75-99) mg/dL POC Glu Animal Laboratory Helper ID Andrade Lena Plasma Lactic Acid Rickey (0.7-2.0) mmol/L Calcium 7.8 L (8.4-10.2) mg/dL Magnesium 1.7 (1.6-2.3) mg/dL Total Bilirubin 1.4 H (0.2-1.3) mg/dL AST 50 (17-59) U/L ALT 31 (4-49) U/L Alkaline Phosphatase 168 H (38-126) U/L Ammonia (<30) umol/L Troponin I <0.012 (0.000-0.034) ng/mL Total Protein 6.2 L (6.3-8.2) g/dL Albumin 2.7 L (3.5-5.0) g/dL Urine Color Urine Appearance (Clear) Urine pH (5.0-8.0) Ur Specific Fluker (1.001-1.035) Urine Protein (Negative) Urine Glucose (UA) (Negative) Urine Ketones (Negative) Urine Blood (Negative) Urine Nitrite (Negative) Urine Bilirubin (Negative) Urine Urobilinogen (<2.0) mg/dL Ur Leukocyte Esterase (Negative) Serum Alcohol <10 mg/dL 10/18/19 Range/Units 19:00 WBC (3.8-10.6) k/uL RBC (4.30-5.90) m/uL Hgb (13.0-17.5) gm/dL Hct (39.0-53.0) % MCV (80.0-100.0) fL MCH (25.0-35.0) pg MCHC (31.0-37.0) g/dL RDW (11.5-15.5) % Plt Count (150-450) k/uL Neutrophils % % Lymphocytes % % Monocytes % % Eosinophils % % Basophils % % Neutrophils # (1.3-7.7) k/uL Lymphocytes # (1.0-4.8) k/uL Monocytes # (0-1.0) k/uL Eosinophils # (0-0.7) k/uL Basophils # (0-0.2) k/uL Hypochromasia Anisocytosis Microcytosis PT (9.0-12.0) sec INR (<1.2) APTT (22.0-30.0) sec Sodium (137-145) mmol/L Potassium (3.5-5.1) mmol/L Chloride (98-107) mmol/L Carbon Dioxide (22-30) mmol/L Anion Gap mmol/L BUN (9-20) mg/dL Creatinine (0.66-1.25) mg/dL Est GFR (CKD-EPI)AfAm (>60 ml/min/1.73 sqM) Est GFR (CKD-EPI)NonAf (>60 ml/min/1.73 sqM) Glucose (74-99) mg/dL POC Glucose (mg/dL) (75-99) mg/dL POC Glu Animal Laboratory Helper ID Plasma Lactic Acid Rickey (0.7-2.0) mmol/L Calcium (8.4-10.2) mg/dL Magnesium (1.6-2.3) mg/dL Total Bilirubin (0.2-1.3) mg/dL AST (17-59) U/L ALT (4-49) U/L Alkaline Phosphatase (38-126) U/L Ammonia (<30) umol/L Troponin I (0.000-0.034) ng/mL Total Protein (6.3-8.2) g/dL Albumin (3.5-5.0) g/dL Urine Color Yellow Urine Appearance Clear (Clear) Urine pH 5.5 (5.0-8.0) Ur Specific Fluker 1.010 (1.001-1.035) Urine Protein Negative (Negative) Urine Glucose (UA) Negative (Negative) Urine Ketones Negative (Negative) Urine Blood Negative (Negative) Urine Nitrite Negative (Negative) Urine Bilirubin Negative (Negative) Urine Urobilinogen <2.0 (<2.0) mg/dL Ur Leukocyte Esterase Negative (Negative) Serum Alcohol mg/dL Critical Care Time Critical Care Time: Yes Total Critical Care Time: 31 Disposition Clinical Impression: Pneumonia, Sepsis Disposition: ADMITTED IP TO THIS HOSP Condition: Fair Referrals: Nonstaff,Physician [REFERRING] - 1-2 days Decision Time: 19:44
[2019-10-18] MEDS ORDERED: SODIUM CHLORIDE 0.9% 1,000 ML IV ONE (17:47)
[2019-10-18 17:50] LABS: Glucose,Whole Blood 106 mg/dL (75-99)
--- NOTE | 2019-10-18 18:09 | CT ---
EXAMINATION TYPE: CT brain wo con DATE OF EXAM: 10/18/2019 COMPARISON: None HISTORY: ams CT DLP: 1146.4 mGycm Automated exposure control for dose reduction was used. Multiple axial sections were obtained of the brain without contrast. There is cerebral cortical atrophy. There is no mass effect nor midline shift. There is no sign of in tracranial hemorrhage. Calvarium is intact. IMPRESSION: Cerebral atrophy. No acute intracranial abnormality.
--- NOTE | 2019-10-18 18:13 | XR ---
EXAMINATION TYPE: XR chest 2V DATE OF EXAM: 10/18/2019 COMPARISON: NONE HISTORY: Altered mental status TECHNIQUE: 2 views FINDINGS: There is poor inspiration with atelectasis at the lung bases. There are sternal wires. Ther e is blunting of the costophrenic angle on the right side. There is no gross heart failure. IMPRESSION: Basilar atelectasis and right pleural effusion are New compared to old exam. No heart av lure seen. Right lower lobe pneumonia is possible.
[2019-10-18 18:26] LABS: INR 1.3 (<1.2); Partial Thromboplastin Time 27.2 sec (22.0-30.0); Prothrombin Time 13.3 sec (9.0-12.0)
[2019-10-18 18:31] LABS: Lactic Acid, Venous 2.8 mmol/L (0.7-2.0)
[2019-10-18 18:47] LABS: Anisocytosis Slight; Basophils % (A) 1 %; Eosinophils # (A) 0.1 k/uL (0-0.7); Eosinophils % (A) 2 %; HCT 37.5 % (39.0-53.0); Hypochromasia Marked; Lymphocytes # (A) 1.1 k/uL (1.0-4.8); Lymphocytes % (A) 20 %; MCH 22.4 pg (25.0-35.0); MCHC 29.3 g/dL (31.0-37.0); MCV 76.5 fL (80.0-100.0); Mean Platelet Volume 10.3; Microcytosis Slight; Monocytes # (A) 0.4 k/uL (0-1.0); Monocytes % (A) 8 %; Neutrophils # (A) 3.8 k/uL (1.3-7.7); Neutrophils % (A) 69 %; RBC 4.91 m/uL (4.30-5.90); RDW 18.3 % (11.5-15.5); WBC 5.5 k/uL (3.8-10.6)
[2019-10-18 18:56] LABS: Platelet Count 56 k/uL (150-450)
[2019-10-18] MEDS ORDERED: AZITHROMYCIN 500 MG in SODIUM CHLORIDE 0.9% 250 ML IVPB STA (19:05)
[2019-10-18] MEDS ORDERED: cefTRIAXone IN SWFI 1,000 MG/10 ML SYRINGE IVP STA (19:05)
[2019-10-18 19:07] LABS: ALT 31 U/L (4-49); AST 50 U/L (17-59); African American GFR (CKD) >90 (>60 ml/min/1.73 sqM); Albumin 2.7 g/dL (3.5-5.0); Alcohol <10 mg/dL; Alkaline Phosphatase 168 U/L (38-126); Anion Gap 6 mmol/L; Blood Urea Nitrogen 15 mg/dL (9-20); Calcium 7.8 mg/dL (8.4-10.2); Carbon Dioxide 21 mmol/L (22-30); Chloride 107 mmol/L (98-107); Glucose 83 mg/dL (74-99); Magnesium 1.7 mg/dL (1.6-2.3); Non-African American GFR(CKD) 81 (>60 ml/min/1.73 sqM); Potassium 3.7 mmol/L (3.5-5.1); Sodium 134 mmol/L (137-145); Total Bilirubin 1.4 mg/dL (0.2-1.3); Total Protein 6.2 g/dL (6.3-8.2)
[2019-10-18 19:28] LABS: Appearance,Urine Clear (Clear); Bilirubin,Urine Negative (Negative); Blood,Urine Negative (Negative); Color,Urine Yellow; Glucose,Urine (UA) Negative (Negative); Ketones,Urine Negative (Negative); Leukocyte Esterase,Urine Negative (Negative); Nitrite,Urine Negative (Negative); PH, Urine 5.5 (5.0-8.0); Protein,Urine Negative (Negative); Urobilinogen,Urine <2.0 mg/dL (<2.0)
[2019-10-18] MEDS ORDERED: LACTULOSE 200 GM/300 ML (FROM 1/2 GAL JUG) RECTAL ONE (19:36)
[2019-10-18] MEDS ORDERED: PNEUMONIA PROTOCOL UTILIZED 1 EACH MISC PO PRN (19:38)
[2019-10-18] MEDS ORDERED: SODIUM CHLORIDE 0.9% 1,500 ML IV STA (19:43)
[2019-10-18] MEDS: SODIUM CHLORIDE 0.9% 1,000 ML IV SCH (22:09)
[2019-10-19] MEDS: LEVOTHYROXINE 50 MCG TAB PO SCH (05:56)
--- NOTE | 2019-10-19 07:24 | XR ---
EXAMINATION TYPE: XR chest 2V DATE OF EXAM: 10/19/2019 COMPARISON: 10/18/2019 HISTORY: Follow-up for pneumonia. TECHNIQUE: Frontal and lateral views of the chest are obtained. FINDINGS: There is redemonstration of elevation of the right hemidiaphragm and right-sided costophre viral angle blunting. Right basilar airspace disease remains. Diffuse interstitial prominence is most e xaggerated on the lateral view. 3 mediastinal silhouette is stable with post CABG change. Diffuse oss eous demineralization. IMPRESSION: 1. Interstitial prominence throughout that may relate to mild interstitial edema or atypical pneumoni a. 2. Slight right hemidiaphragm elevation and blunting of the right costophrenic angle new from 2018, w ith right basilar airspace disease (likely atelectasis).
[2019-10-19] MEDS: PROPRANOLOL 10 MG TAB PO SCH (08:10)
[2019-10-19] MEDS: PANTOPRAZOLE 40 MG TABLET PO SCH ×2 (08:10→08:14)
[2019-10-19] MEDS: SODIUM CHLORIDE 0.9% 1,000 ML IV SCH (08:10)
[2019-10-19] MEDS ORDERED: ASPIRIN 81 MG PO SCH (09:00)
[2019-10-19] MEDS ORDERED: FUROSEMIDE 40 MG TAB PO SCH (09:00)
[2019-10-19] MEDS ORDERED: ATORVASTATIN 10 MG TAB PO SCH (09:00)
[2019-10-19] MEDS ORDERED: NON FORMULARY DRUG (Potassium Gluconate [Potassium Gluconate] 99 MG) PO SCH (09:00)
[2019-10-19] MEDS ORDERED: SPIRONOLACTONE 25 MG TAB PO SCH (09:00)
[2019-10-19] MEDS ORDERED: LIDOCAINE 5% OINTMENT 50 GM JAR TOPICAL PRN (12:14)
[2019-10-19] MEDS ORDERED: NITROGLYCERIN SL TABS 0.4 MG TAB SUBLINGUAL PRN (12:14)
--- NOTE | 2019-10-19 13:41 | P.HPIM ---
History of Present Illness Patient is a pleasant 84-year-old male was a bit of poor historian and unable to provide Clear history to me what appears like patient came to the hospital because of weakness generalized. Patient doesn't have any fever patient denied any chills patient denied any significant cough shortness of breath. Patient was recently started on the biological neurologic agents for his metastatic liver cancer. Patient follows up in your was to [place]. Patient believes that his symptoms of confusion and generalized weakness is secondary to this medication or maybe we can because of the cancer itself. Patient chest x-ray showed diffuse infiltrate but patient is not exposed to anyone as he is back been on isolation because of which Covid 19 possibility is low. Patient lives with his at home. Patient has minimally elevated pro-Questran level of 0.1 patient is found to have lactic acidosis on admission. Which improved now with IV fluids patient is bit hyponatremic as well patient clinically appears to be dehydrated. Patient's serum creatinine 0.84 but this is considered high because of his muscle mass which is extremely low Review of Systems REVIEW OF SYSTEMS: CONSTITUTIONAL: As mentioned in HPI HEENT: No recent visual problems or hearing problems. Denied any sore throat. CARDIOVASCULAR: No chest pain, orthopnea, PND, no palpitations, no syncope. PULMONARY: No shortness of breath, no cough, no hemoptysis. GASTROINTESTINAL: No diarrhea, no nausea, no vomiting, no abdominal pain. NEUROLOGICAL: No headaches, no weakness, no numbness. HEMATOLOGICAL: Denies any bleeding or petechiae. GENITOURINARY: Denies any burning micturition, frequency, or urgency. MUSCULOSKELETAL/RHEUMATOLOGICAL: Denies any joint pain, swelling, or any muscle pain. ENDOCRINE: Denies any polyuria or polydipsia. The rest of the 14-point review of systems is negative. 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 tumor on right foot removed 25 years. liver tumors removed Past Anesthesia/Blood Transfusion Reactions: No Reported Reaction Past Psychological History: No Psychological Hx Reported Smoking Status: Never smoker Past Alcohol Use History: None Reported Past Drug Use History: None Reported - Past Family History Mother Additional Family Medical History / Comment(s): Esophageal varices, hepatitis B Father Additional Family Medical History / Comment(s): Congestive heart failure Medications and Allergies Home Medications Medication Instructions Recorded Confirmed Type Levothyroxine Sodium [Synthroid] 50 mcg PO DAILY 09/26/17 10/18/19 History Pantoprazole Sodium [Protonix] 40 mg PO DAILY 09/26/17 10/18/19 History Propranolol HCl 10 mg PO DAILY 09/26/17 10/18/19 History Aspirin EC [Ecotrin Low Dose] 81 mg PO DAILY 10/18/19 10/18/19 History Atorvastatin [Lipitor] 10 mg PO Q48H 10/18/19 10/18/19 History Dorzolamide-Timol 2.23%/0.68% 1 drop BOTH EYES BID 10/18/19 10/18/19 History [Cosopt] Furosemide [Lasix] 40 mg PO DAILY 10/18/19 10/18/19 History Iron Polysaccharide Complex 150 mg PO DAILY 10/18/19 10/18/19 History [Polysaccharide Iron] Latanoprost [Xalatan 0.005%] 1 drop BOTH EYES HS 10/18/19 10/18/19 History Lenvatinib Mesylate [Lenvima] 12 mg PO DAILY 10/18/19 10/18/19 History Lidocaine 5% Oint [Xylocaine 5% 1 applic TOPICAL QID PRN 10/18/19 10/18/19 History Oint] Nitroglycerin Sl Tabs [Nitrostat] 0.4 mg SUBLINGUAL Q5M PRN 10/18/19 10/18/19 History Potassium Gluconate 99 mg PO DAILY 10/18/19 10/18/19 History Spironolactone [Aldactone] 100 mg PO DAILY 10/18/19 10/18/19 History Vit C/E/Zn/Coppr/Lutein/Zeaxan 2 cap PO DAILY 10/18/19 10/18/19 History [Preservision Areds 2 Softgel] Allergies Allergy/AdvReac Type Severity Reaction Status Date / Time levofloxacin [From Levaquin] Allergy Unknown Verified 10/18/19 18:29 shellfish derived [Shellfish] Allergy Unknown Verified 10/18/19 18:29 Physical Exam Vitals: Vital Signs Temp Pulse Pulse Resp BP BP Pulse Ox 10/19/19 08:00 65 20 10/19/19 05:25 97.4 F L 65 20 148/83 98 10/18/19 20:45 98.1 F 60 22 152/74 97 10/18/19 19:53 97.7 F 77 18 130/72 96 10/18/19 19:15 61 18 126/66 98 10/18/19 17:25 97.6 F 55 L 18 162/82 100 Intake and Output 10/18/19 10/19/19 10/19/19 22:59 06:59 14:59 Output Total 500 450 Balance -500 -450 Output: Urine 500 450 Other: Voiding Method Urinal Urinal # Bowel Movements 2 Weight 69.853 kg PHYSICAL EXAMINATION: GENERAL: The patient is alert and oriented x3, not in any acute distress. Well developed, well nourished. HEENT: Pupils are round and equally reacting to light. EOMI. No scleral icterus. No conjunctival pallor. Normocephalic, atraumatic. No pharyngeal erythema. No thyromegaly. CARDIOVASCULAR: S1 and S2 present. No murmurs, rubs, or gallops. PULMONARY: Chest is clear to auscultation, no wheezing or crackles. ABDOMEN: Soft, nontender, nondistended, normoactive bowel sounds. No palpable organomegaly. MUSCULOSKELETAL: No joint swelling or deformity. EXTREMITIES: No cyanosis, clubbing, or pedal edema. NEUROLOGICAL: Gross neurological examination did not reveal any focal deficits. Does have significant generalized weakness SKIN: No rashes. Results CBC & Chem 7: 10/18/19 17:31 10/18/19 18:35 Labs: Abnormal Lab Results - Last 24 Hours (Table) 10/18/19 10/18/19 10/18/19 Range/Units 17:31 17:31 17:31 Hgb 11.0 L (13.0-17.5) gm/dL Hct 37.5 L (39.0-53.0) % MCV 76.5 L (80.0-100.0) fL MCH 22.4 L (25.0-35.0) pg MCHC 29.3 L (31.0-37.0) g/dL RDW 18.3 H (11.5-15.5) % Plt Count 56 L (150-450) k/uL PT 13.3 H (9.0-12.0) sec INR 1.3 H (<1.2) Sodium (137-145) mmol/L Carbon Dioxide (22-30) mmol/L POC Glucose (mg/dL) (75-99) mg/dL Plasma Lactic Acid Rickey 2.8 H* (0.7-2.0) mmol/L Calcium (8.4-10.2) mg/dL Total Bilirubin (0.2-1.3) mg/dL Alkaline Phosphatase (38-126) U/L Ammonia 31 H (<30) umol/L Total Protein (6.3-8.2) g/dL Albumin (3.5-5.0) g/dL Procalcitonin (0.02-0.09) ng/mL 10/18/19 10/18/19 10/18/19 Range/Units 17:31 17:48 18:35 Hgb (13.0-17.5) gm/dL Hct (39.0-53.0) % MCV (80.0-100.0) fL MCH (25.0-35.0) pg MCHC (31.0-37.0) g/dL RDW (11.5-15.5) % Plt Count (150-450) k/uL PT (9.0-12.0) sec INR (<1.2) Sodium 134 L (137-145) mmol/L Carbon Dioxide 21 L (22-30) mmol/L POC Glucose (mg/dL) 106 H (75-99) mg/dL Plasma Lactic Acid Rickey (0.7-2.0) mmol/L Calcium 7.8 L (8.4-10.2) mg/dL Total Bilirubin 1.4 H (0.2-1.3) mg/dL Alkaline Phosphatase 168 H (38-126) U/L Ammonia (<30) umol/L Total Protein 6.2 L (6.3-8.2) g/dL Albumin 2.7 L (3.5-5.0) g/dL Procalcitonin 0.10 H (0.02-0.09) ng/mL 10/18/19 Range/Units 21:46 Hgb (13.0-17.5) gm/dL Hct (39.0-53.0) % MCV (80.0-100.0) fL MCH (25.0-35.0) pg MCHC (31.0-37.0) g/dL RDW (11.5-15.5) % Plt Count (150-450) k/uL PT (9.0-12.0) sec INR (<1.2) Sodium (137-145) mmol/L Carbon Dioxide (22-30) mmol/L POC Glucose (mg/dL) (75-99) mg/dL Plasma Lactic Acid Rickey 2.3 H* (0.7-2.0) mmol/L Calcium (8.4-10.2) mg/dL Total Bilirubin (0.2-1.3) mg/dL Alkaline Phosphatase (38-126) U/L Ammonia (<30) umol/L Total Protein (6.3-8.2) g/dL Albumin (3.5-5.0) g/dL Procalcitonin (0.02-0.09) ng/mL Thrombosis Risk Factor Assmnt - Choose All That Apply Any of the Below Risk Factors Present?: Yes Each Factor Represents 1 point: Serious lung disease incl. pneumonia (< 1month) Other Risk Factors: Yes Each Risk Factor Represents 2 Points: Malignancy Each Risk Factor Represents 3 Points: Age 75 years or older Other congenital or acquired thrombophilia - If yes, enter type in comment: No Thrombosis Risk Factor Assessment Total Risk Factor Score: 6 Thrombosis Risk Factor Assessment Level: High Risk Assessment and Plan Plan: -Generalized weakness: Probably mostly secondary to cancer itself or cancer medications he is receiving rather than infection but I cannot completely rule out possibility of infection patient will continued on antibiotics for skilled admission therapy consulted. -Lactic acidosis secondary to intravascular volume depletion dehydration mostly represents sepsis possibility of sepsis is low but cannot be ruled out -Hypovolemic hyponatremia diuretics will be held patient will continued on antibiotics patient doesn't have any history of congestive heart failure -Possibility of encephalopathy can be metabolic or toxic on admission when I evaluated patient doesn't have any confusion but patient is bit slow because of his hearing problems and age. 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
[2019-10-19 14:28] VITALS: BMI 23.4
--- NOTE | 2019-10-19 16:05 | CONS ---
CONSULTATION PULMONARY/CRITICAL CARE CONSULTATION: DATE OF SERVICE: 10/19/2019 REASON FOR CONSULTATION: Mental status changes. This is an 84-year-old gentleman who apparently has a history of liver cancer. The patient either sees a doctor down at the [facility] in [place] or [facility]. He was not a particularly good historian. Anyway, he comes into the emergency room with alterations in mental status. The patient's is not available to give any history. The patient was very confused today. He was not sure exactly where he was. He was not able to actually tell me why he was brought into the hospital. He was actually brought to the hospital by EMS. He denied any complaints per se. He states he was getting chemotherapy at the [facility]. He states the doctor's name is Dr. Bañuelos. (I am just guessing on that spelling, by the way.) Anyway, the patient states that he was told by that doctor to come to the hospital here. According to the ER wes, his mentioned to the ER doctor that the patient had chronic back pain. In addition, apparently he was weaker than usual and more confused than normal. HOME MEDICATIONS: His home medications include aspirin, Synthroid, Protonix, propranolol, Lipitor, Lasix, potassium, Aldactone and eye vitamins. ALLERGIES: ALLERGIES include LEVAQUIN and SHELLFISH. MEDICAL HISTORY: Medical history includes primarily the liver cancer. The patient is apparently getting chemo. He has a history of splenomegaly, CAD, hypothyroidism, neck injury resulting in neuropathy, esophageal varices, glaucoma. SURGICAL HISTORY: Surgical history includes previous open heart surgery and a tumor on the right foot being removed. SOCIAL HISTORY: He is a lifelong nonsmoker. No alcohol use. No illicit drug use. FAMILY HISTORY: Positive for mother with esophageal varices and hepatitis C and father with heart failure. REVIEW OF SYSTEMS: Review of systems cannot be obtained. Apparently from the ER wes, the systems affected would be the neurologic system, where he is having mental status changes, and constitutional system, where he is having weakness, and finally the musculoskeletal system, where he apparently had been complaining of low back pain. PHYSICAL EXAMINATION: VITAL SIGNS: Current vital signs are reviewed. They include temperature 97.4, heart rate 65, respiratory rate 20, blood pressure 148/83, mean 104, room-air saturation 98%. GENERAL APPEARANCE: Appears in no acute distress. He does not appear to have any respiratory distress. Very confused. HEENT: HEENT examination is grossly unremarkable. No supplemental oxygen noted. NECK: Supple. Full range of motion. No adenopathy. Neck veins are flat. CARDIOVASCULAR: Regular rhythm and rate. Heart rate 65. S1, S2 normal. LUNGS: Diminished breath sounds. A few scattered mild rhonchi. No wheezes or crackles. ABDOMEN: Soft. No tenderness on palpation. EXTREMITIES: Intact. No edema. SKIN: Without rash. NEUROLOGIC: Neurologic examination is significant for confusion. The patient is really not able to give much of a germane history. He is oriented to person, not to place or time. He does move all 4 extremities, though. LABORATORY DATA: Current laboratory data include a white count of 5.5, hemoglobin 11.0, hematocrit 37.5, platelet count 56,000. PT 13.3, INR 1.3. Sodium 134, potassium 3.7, chloride 107, CO2 21. Glucose 106. Lactic acid 2.3, then down to 2.0. Calcium 7.8. Bilirubin 1.4. Ammonia 31, which is minimally elevated. The rest of his labs look pretty good. Procalcitonin 0.10. Urine is negative. Alcohol negative. A chest x-ray done today as well as one done yesterday show some mild interstitial prominence and mild elevation and blunting of both diaphragms, right more than left. Brain CT shows no acute abnormality. CURRENT MEDICATIONS: Current medications are reviewed. He is on aspirin, Lipitor, Zithromax, Rocephin, Cosopt, Lasix, Xalatan eyedrops, levothyroxine, lidocaine, nitroglycerin sublingual, Protonix and propranolol. ASSESSMENT: 1. Mental status changes, of unclear etiology, with a mild elevation of ammonia and no clear-cut evidence of infection. 2. History of liver cancer. 3. History of hypothyroidism. 4. History of splenomegaly. 5. Coronary artery disease. 6. Neuropathy. 7. Esophageal varices. 8. Glaucoma. PLAN: The patient's antibiotics could probably be discontinued. His procalcitonin is only very mildly elevated. He does not have any obvious infection. He is not complaining of anything, although his history is rather poor. Additional recommendations and suggestions are forthcoming. Prognosis is guarded. If not recently done, either an ultrasound or CT of the abdomen may show some evidence of ascites, which, if infected, might be causing his mental status changes. Additional recommendations and suggestions are forthcoming. Prognosis is guarded. MMODL / IJN: [id number] /
[2019-10-19] MEDS ORDERED: PANTOPRAZOLE 40 MG TABLET PO SCH (19:00)
[2019-10-19] MEDS ORDERED: AZITHROMYCIN 500 MG TAB PO SCH (20:00)
[2019-10-19] MEDS: DORZOLAMIDE-TIMOLOL 2.23%/0.68 10ML BTL BOTH EYES SCH (20:50)
[2019-10-19] MEDS ORDERED: LATANOPROST 0.005% OPHTH DROPS 2.5 ML BTL BOTH EYES SCH (21:00)
[2019-10-20 04:42] VITALS: RESP 16
[2019-10-20] MEDS: LEVOTHYROXINE 50 MCG TAB PO SCH (05:03)
[2019-10-20 08:06] LABS: Anisocytosis Slight; HCT 33.5 % (39.0-53.0); HGB 9.9 gm/dL (13.0-17.5); Hypochromasia Marked; MCH 22.7 pg (25.0-35.0); MCHC 29.5 g/dL (31.0-37.0); MCV 77.2 fL (80.0-100.0); Mean Platelet Volume 8.4; Microcytosis Slight; RBC 4.34 m/uL (4.30-5.90); RDW 18.7 % (11.5-15.5); WBC 4.2 k/uL (3.8-10.6)
[2019-10-20 08:23] LABS: Calcium 7.8 mg/dL (8.4-10.2); Potassium 3.7 mmol/L (3.5-5.1)
[2019-10-20 08:29] LABS: Platelet Count 48 k/uL (150-450)
[2019-10-20] MEDS: PROPRANOLOL 10 MG TAB PO SCH (08:34)
[2019-10-20] MEDS: DORZOLAMIDE-TIMOLOL 2.23%/0.68 10ML BTL BOTH EYES SCH (08:35)
[2019-10-20] MEDS ORDERED: ASPIRIN 81 MG PO SCH (09:00)
--- NOTE | 2019-10-20 12:36 | PN ---
PROGRESS NOTE PULMONARY/CRITICAL CARE PROGRESS NOTE: DATE OF SERVICE: October 20, 2019 This is an 84-year-old gentleman who we saw yesterday in consultation. He has a history of liver cancer that is either taken care of down at the [facility] in [place] or [facility]. Very poor historian and in fact, he was admitted for mental status changes. The patient is still very confused. He is unable to really elicit why he is here. He apparently denies any shortness of breath or chest pain. Denies any cough or phlegm production. No fever or chills. PHYSICAL EXAMINATION: VITAL SIGNS: Current vital signs are stable. Temperature 97.9, heart rate 80, respiratory rate 16, blood pressure 104/62, mean 76 and room-air saturation 96%. GENERAL: Appears in no acute distress. HEENT: Examination is grossly unremarkable. No nasal O2 noted. NECK: Supple. Full range of motion. No adenopathy. Neck veins are flat. CARDIOVASCULAR: Examination reveals regular rhythm and rate. S1, S2 normal. No S3, S4, or murmur. LUNGS: Reveal mostly clear breath sounds. No wheezes, rhonchi, or crackles. Breath sounds equal. ABDOMEN: Soft. Bowel sounds are heard. EXTREMITIES: Are intact. No cyanosis, clubbing, or edema. SKIN: Without rash. NEUROLOGIC: Examination is brief but nonfocal. The patient is still confused. He is a very poor historian. LABS: Labs are reviewed. White count 4.2, hemoglobin 9.9, hematocrit 33.5, platelet count is not listed here. Sodium 137, potassium 3.7, chloride 108, CO2 of 22 and anion gap is 7. BUN and creatinine were 21 and 0.93. The rest of the labs look pretty good. Urine is clean. Chest x-rays were evaluated yesterday. ASSESSMENT: 1. Mental status changes, which may be more chronic than acute, possibly secondary to either elevated ammonia level from his liver cancer and/or dementia. There is no clear-cut evidence of infection. 2. History of liver cancer. 3. History of hypothyroidism. 4. History of splenomegaly. 5. Coronary artery disease. 6. Neuropathy. 7. Esophageal varices. 8. Glaucoma. PLAN: Overall, the patient is doing about the same. He is in no respiratory distress. Not requiring any supplemental oxygen. There is no audible wheezing, use of accessory muscles or conversational dyspnea. Will follow as needed. No additional recommendations are made. Prognosis is guarded. MMODL / IJN: [id number] /
[2019-10-20 13:46] VITALS: BP 120/75; PULSE 74; TEMP 97.6
--- NOTE | 2019-10-20 15:29 | P.DS ---
Providers Date of admission: 10/18/19 19:39 Expected date of discharge: 10/20/19 Attending physician: Liam Rhodes Consults: 10/18/19 19:38 Consult Physician Routine Consulting Provider: Roxana Cameron Consult Reason/Comments: pneumonia Do you want consulting provider notified?: Yes Primary care physician: [facility] Hospital Course: Final diagnosis -Generalized weakness: Probably mostly secondary to cancer itself or cancer medications he is receiving rather than infection -Lactic acidosis secondary to intravascular volume depletion dehydration mostly represents sepsis possibility of sepsis is low but cannot be ruled out -Hypovolemic hyponatremia -Possibility of encephalopathy can be metabolic or toxic on admission -Coronary artery disease with previous history of CABG in the past -Liver cancer patient is presently on biologic agents status post radiation therapy and chemotherapy -Hypothyroidism -DVT prophylaxis Discharge disposition Patient is being discharged in a stable condition with guarded prognosis to home and will follow-up with the [facility] upon discharge. Patient family will also be working with [facility] for additional home care services. Patient continue with a short course of oral antibiotics in the form of Zithromax and Ceftin for the next 4 days. Total time taken is 35 minutes. History of present illness This is a 84-year-old male who was recently admitted with generalized weakness with some mild confusion and was being closely monitored. Patient was also found to be slightly hyponatremic and appeared to be dehydrated. IV fluids initiated along with IV Rocephin and Zithromax. Patient's mentation improved today and confusion has slightly improved. Sodium today is 137 and creatinine is 0.93. Patient's family is refusing rehab but would like some home care services. Patient referred to [facility] but with [place] health insurance being primary patient needs to go through the [facility] for home health care services and case management has faxed appropriate documents to initiate this process. Patient to follow-up with the [facility] upon discharge. Patient to follow- up with oncology about immunosuppressive medications in the outpatient setting. Currently no reports of chest pain, shortness of breath, or palpitations. Patient is afebrile. No reports of nausea or vomiting and patient is tolerating diet. Patient will be discharged home today. On exam vital signs are stable. Temp is 97.6 F, pulse is 74, respirations are 16, blood pressure is 120/75, oxygen saturation is 95% on room air. Cardio S1, S2 are muffled. Respiratory shows diminished breath sounds at the bases otherwise clear to auscultation. Abdomen is soft and nontender. Nervous system shows no focal deficits. Please refer to medication reconciliation sheet for a list of medications. Patient Condition at Discharge: Fair Plan - Discharge Summary Discharge Rx Participant: No New Discharge Prescriptions: New Cefuroxime Axetil [Ceftin] 500 mg PO BID 4 Days #8 tab Azithromycin [Zithromax] 500 mg PO DAILY@1999 4 Days #4 tab Continue Pantoprazole Sodium [Protonix] 40 mg PO DAILY Levothyroxine Sodium [Synthroid] 50 mcg PO DAILY Propranolol HCl 10 mg PO DAILY Atorvastatin [Lipitor] 10 mg PO Q48H Vit C/E/Zn/Coppr/Lutein/Zeaxan [Preservision Areds 2 Softgel] 2 cap PO DAILY Nitroglycerin Sl Tabs [Nitrostat] 0.4 mg SUBLINGUAL Q5M PRN PRN Reason: Chest Pain Lidocaine 5% Oint [Xylocaine 5% Oint] 1 applic TOPICAL QID PRN PRN Reason: Pain Latanoprost [Xalatan 0.005%] 1 drop BOTH EYES HS Dorzolamide-Timol 2.23%/0.68% [Cosopt] 1 drop BOTH EYES BID Aspirin EC [Ecotrin Low Dose] 81 mg PO DAILY Iron Polysaccharide Complex [Polysaccharide Iron] 150 mg PO DAILY Lenvatinib Mesylate [Lenvima] 12 mg PO DAILY #0 Discontinued Potassium Gluconate 99 mg PO DAILY Spironolactone [Aldactone] 100 mg PO DAILY Furosemide [Lasix] 40 mg PO DAILY Discharge Medication List Levothyroxine Sodium [Synthroid] 50 mcg PO DAILY 09/26/17 [History] Pantoprazole Sodium [Protonix] 40 mg PO DAILY 09/26/17 [History] Propranolol HCl 10 mg PO DAILY 09/26/17 [History] Aspirin EC [Ecotrin Low Dose] 81 mg PO DAILY 10/18/19 [History] Atorvastatin [Lipitor] 10 mg PO Q48H 10/18/19 [History] Dorzolamide-Timol 2.23%/0.68% [Cosopt] 1 drop BOTH EYES BID 10/18/19 [History] Iron Polysaccharide Complex [Polysaccharide Iron] 150 mg PO DAILY 10/18/19 [History] Latanoprost [Xalatan 0.005%] 1 drop BOTH EYES HS 10/18/19 [History] Lidocaine 5% Oint [Xylocaine 5% Oint] 1 applic TOPICAL QID PRN 10/18/19 [History] Nitroglycerin Sl Tabs [Nitrostat] 0.4 mg SUBLINGUAL Q5M PRN 10/18/19 [History] Vit C/E/Zn/Coppr/Lutein/Zeaxan [Preservision Areds 2 Softgel] 2 cap PO DAILY 10/18/19 [History] Azithromycin [Zithromax] 500 mg PO DAILY@1999 4 Days #4 tab 10/20/19 [Rx] Cefuroxime Axetil [Ceftin] 500 mg PO BID 4 Days #8 tab 10/20/19 [Rx] Lenvatinib Mesylate [Lenvima] 12 mg PO DAILY #0 10/20/19 [Rx] Follow up Appointment(s)/Referral(s): [facility],Clinic [Primary Care Provider] - 1-2 Days (Please call office to make hospitial follow up) Ambulatory/Diagnostic Orders: Basic Metabolic Panel [LAB.AMB] Time Frame: 2 Days, Location: None Selected Patient Instructions/Handouts: Pneumonia (DC) Activity/Diet/Wound Care/Special Instructions: Activity Limited until follow-up, fall precautions Continue with antibiotics for the next 4 days until finished Follow-up with primary care provider upon discharge Repeat labs in 2-3 days Continue to hold lenvima until follow-up with oncologist Hold Lasix, Aldactone, and potassium until repeat labs in follow-up with primary care provider Continue current cardiac diet Continue home isolation until okd by dr ROY will set up Homecare, order has been faxed to [facility]. Discharge Disposition: HOME WITH HOME HEALTH SERVICES
== END 2019-10-20 14:11 | disposition home health service (06) | DRG 871 ==
LOC: EC 17:23 → 6NMEDSUR 19:39
PROVIDERS: ADMIT Hospitalist; ATTEND Hospitalist
DX: A41.9 Sepsis, unspecified organism (principal); G93.41 Metabolic encephalopathy; G92 Toxic encephalopathy; C22.9 Malignant neoplasm of liver, not specified as primary or secondary; E87.1 Hypo-osmolality and hyponatremia; E87.2 Acidosis; I85.00 Esophageal varices without bleeding; D69.6 Thrombocytopenia, unspecified; E03.9 Hypothyroidism, unspecified; E86.0 Dehydration; E86.1 Hypovolemia; G62.9 Polyneuropathy, unspecified; G89.29 Other chronic pain; H40.9 Unspecified glaucoma; I25.10 Atherosclerotic heart disease of native coronary artery without angina pectoris; M54.9 Dorsalgia, unspecified; R53.1 Weakness; T45.1X5A Adverse effect of antineoplastic and immunosuppressive drugs, initial encounter; H91.90 Unspecified hearing loss, unspecified ear; Z87.440 Personal history of urinary (tract) infections; Z79.82 Long term (current) use of aspirin; Z79.890 Hormone replacement therapy; Z79.899 Other long term (current) drug therapy; Z92.3 Personal history of irradiation; Z95.1 Presence of aortocoronary bypass graft; Z87.01 Personal history of pneumonia (recurrent); Z88.1 Allergy status to other antibiotic agents; Z91.013 Allergy to seafood; Z82.49 Family history of ischemic heart disease and other diseases of the circulatory system; Z83.79 Family history of other diseases of the digestive system
CPT/HCPCS: 36415; 51701; 70450; 71046; 80048; 80053; 80320; 81003; 82140; 83605; 83735; 83880; 84145; 84484; 85025; 85027; 85610; 85730; 87040; 93005; 96361; 96365; 96375; 99291

== ENCOUNTER → 2020-04-18 | Outpatient (CLI) | payer OTHER, MEDICARE, BC ==
--- NOTE | 2020-04-18 14:17 | US ---
EXAMINATION TYPE: US groin RT DATE OF EXAM: 04/18/2020 COMPARISON: NONE CLINICAL HISTORY: K40.90 Unilateral inguinal hernia. Pt states palpable lump right groin Within right groin in area of pt's palpable there is a large cystic collection= 12.1 x 2.3 x 4.9 cm / This area would increase in AP dimension upon valsalva from 2.3 to 4.1 cm/ Possible bowel herniatio n at distal aspect with valsalva IMPRESSION: Large cystic area in the area of palpable abnormality could represent a bowel hernia. Se nikunj or fluid collection also in the differential diagnosis. Correlate clinically for a hernia and co rrelation with CT scan of the abdomen and pelvis recommended.
== END | disposition home or self-care (01) ==
LOC: RADUSWWP 13:28
PROVIDERS: ATTEND Physician Assistant
DX: R93.89 Abnormal findings on diagnostic imaging of other specified body structures (principal)